=== PATIENT | female | born 1995 | race Caucasian/White ===

== ENCOUNTER 2025-04-26 08:20 | Outpatient (CLI) | payer OTHER, SELFPAY | END 2025-04-26 08:21 | disposition home or self-care (01) | LOC: NFLDREF 05-01 10:50 | PROVIDERS: PCP Nurse Practitioner Family; Visit Provider Nurse Practitioner Family | DX: K64.9 Unspecified hemorrhoids (principal); Z13.29 Encounter for screening for other suspected endocrine disorder; Z13.0 Encounter for screening for diseases of the blood and blood-forming organs and certain disorders involving the immune mechanism; Z13.9 Encounter for screening, unspecified; Z13.6 Encounter for screening for cardiovascular disorders; Z97.5 Presence of (intrauterine) contraceptive device | CPT/HCPCS: 80053; 80061; 84443 ==